=== PATIENT | male | born 1965 | race Two or more races ===

== ENCOUNTER 2019-02-03 11:49 | Outpatient (CLI) | payer OTHER | END 2019-02-03 11:50 | disposition home or self-care (01) | LOC: SONOGRAMA 11:49 | DX: M54.5 Low back pain (principal); Z01.810 Encounter for preprocedural cardiovascular examination; E03.8 Other specified hypothyroidism; E78.49 Other hyperlipidemia; I10 Essential (primary) hypertension; E11.51 Type 2 diabetes mellitus with diabetic peripheral angiopathy without gangrene; E55.9 Vitamin D deficiency, unspecified; E66.8 Other obesity; J45.998 Other asthma; J44.1 Chronic obstructive pulmonary disease with (acute) exacerbation ==

== ENCOUNTER 2019-10-14 10:42 | Outpatient (CLI) | payer OTHER | END 2019-10-14 10:44 | disposition home or self-care (01) | LOC: RAD 10:42 | PROVIDERS: ATTEND Internal Medicine | DX: I10 Essential (primary) hypertension (principal); M54.5 Low back pain; Z01.811 Encounter for preprocedural respiratory examination; E03.8 Other specified hypothyroidism; E78.89 Other lipoprotein metabolism disorders; E11.51 Type 2 diabetes mellitus with diabetic peripheral angiopathy without gangrene; E55.9 Vitamin D deficiency, unspecified; E66.8 Other obesity; J45.998 Other asthma; J44.1 Chronic obstructive pulmonary disease with (acute) exacerbation ==

== ENCOUNTER 2021-04-12 13:14 | Outpatient (CLI) | payer OTHER | END 2021-04-12 13:18 | disposition home or self-care (01) | LOC: SONOGRAMA 13:14 | PROVIDERS: ATTEND Chiropractor Sports Physician | DX: S43.402D Unspecified sprain of left shoulder joint, subsequent encounter (principal); S46.012A Strain of muscle(s) and tendon(s) of the rotator cuff of left shoulder, initial encounter ==

== ENCOUNTER 2021-08-03 13:11 | Outpatient (CLI) | payer OTHER | END 2021-08-03 13:12 | disposition home or self-care (01) | LOC: SONOGRAMA 13:11 | PROVIDERS: ATTEND Internal Medicine Endocrinology, Diabetes & Metabolism | DX: E04.1 Nontoxic single thyroid nodule (principal) ==